=== PATIENT | male | born 1945 | race Caucasian/White ===

== ENCOUNTER 2019-09-23 20:27 | Observation (INO) | payer MEDICARE, OTHER ==
--- NOTE | 2019-09-23 21:58 | ED Physician Documentation ---
History of Present Illness - Stated complaint Stated Complaint: R EYE LAC - Chief complaint Chief Complaint: Laceration - History obtained from History obtained from: Patient, Family - Additonal information Additional information: This is a 74-year-old man who presents with complaints that he tripped on his own feet sometime between 430 and 5:00 tonight [address] on the driveway and fell breaking his glasses and cutting his right cheek. He says he did not pass out and is not feeling dizzy. He has not had any vomiting and he denies any other injury in the fall. He denies numbness or tingling into the arms or legs and no neck pain. His brought him in tonight because she found him at home when she got home around 7 PM sitting in the chair with blood all over the side of his face and he told her that he could not remember what it happened. The spent the night at their daughter's house last night because she [place] the [place]. He came out to help her bring his luggage and he was very unsteady on his feet and kind of staggering. Patient says he drink 2 glasses of wine tonight with dinner. He is uncertain when his last tetanus vaccine was. Review of Systems Eyes: reports: Other (No double vision). denies: Loss of vision, Decreased vision GI: denies: Vomiting Musculoskeletal: denies: Neck pain, Back pain Neurologic: reports: Confused, Head injury. denies: Generalized weakness, Focal weakness, Numbness, Difficulty speaking, Near syncope, Syncope, Altered mental status, Headache, LOC PD PAST MEDICAL HISTORY - Allergies Allergies/Adverse Reactions: Allergies Allergy/AdvReac Type Severity Reaction Status Date / Time No Known Drug Allergies Allergy Verified 09/23/19 20:34 PD ED PE NORMAL - Vitals Vital signs reviewed: Yes - General General: Alert and oriented X 3, No acute distress, Well developed/nourished, Other (Patient smells strongly of alcohol.) - HEENT HEENT: PERRL, EOMI, Moist mucous membranes, Other (There is bruising and swelling to the right cheek and approximately 0.75 cm laceration lateral and to the lateral canthus. It is gaping open and still has a small active bleeding present.) - Neck Neck: No bony TTP - Respiratory Respiratory: No respiratory distress - Derm Derm: Normal color, Other (Bruising as noted above) - Extremities Extremities: No deformity, No tenderness to palpate - Neuro Neuro: Alert and oriented X 3, coiled coil inspector 2-12 intact, No motor deficit, No sensory deficit, Normal speech, Other (Patient did ambulate to the bathroom.) - Psych Psych: Normal mood, Normal affect Results - Vitals Vitals: Vital Signs - 24 hr 09/23/19 09/24/19 20:34 00:13 Temperature 36.7 C Heart Rate 78 71 Respiratory 16 16 Rate Blood Pressure 123/65 118/61 O2 Saturation 94 96 Oxygen O2 Source Room air - Labs Labs: Laboratory Tests 09/23/19 09/23/19 09/23/19 23:50 23:50 23:50 WBC 9.4 RBC 4.28 L Hgb 14.6 Hct 41.2 L MCV 96.3 H MCH 34.1 H MCHC 35.4 RDW 12.8 Plt Count 187 MPV 8.9 Neut # (Auto) 5.8 Lymph # (Auto) 2.6 Dent # (Auto) 0.7 Eos # (Auto) 0.2 Baso # (Auto) 0.1 Absolute Nucleated RBC 0.00 Nucleated RBC % 0.0 PT 11.2 INR 1.0 Sodium 133 L Potassium 3.6 Chloride 89 L Carbon Dioxide 28 Anion Gap 16.0 H BUN 14 Creatinine 0.7 Estimated GFR (MDRD) 111 Glucose 99 Calcium 9.0 Total Bilirubin 0.9 AST 86 H ALT 81 H Alkaline Phosphatase 51 Total Protein 7.5 Albumin 4.4 Globulin 3.1 Albumin/Globulin Ratio 1.4 Lipase 54 H Ethyl Alcohol 185.5 - Rads (name of study) CT brain Radiology: See rad report (Patient has a 4 mm right frontoparietal subdural hematoma) PD MEDICAL DECISION MAKING - ED course Complexity details: reviewed results, re-evaluated patient, d/w patient, d/w family ED course: Laceration was repaired. Patient CT was discussed with him and his . He does have an alcohol level over 185. Liver enzymes are mildly elevated. CBC is normal. I have a call pending to the neurosurgeon at [facility] to determine whether the patient can be observed here or should be transferred. 0210: Discussed with Dr. Ahn, neurosurgery, at [facility]. He felt this subdural was probably not acute and the patient could be observed here. I did discuss again with the patient that his alcohol level is 185 and we do not want him to go into withdrawal so he needs to let us know if he is having any signs or symptoms of feeling anxious. He states understanding. The hospitalist did accept the patient for observation. Departure - Departure Disposition: ED Place in Observation Clinical Impression: Laceration, Subdural hematoma Condition: Good
[2019-09-23] MEDS ORDERED: TETANUS/DIPHTHERIA/PERTUSSIS 0.5 ML SYRINGE IM ONE (22:19)
[2019-09-23] MEDS ORDERED: LIDOCAINE 2%-EPI 1:100000 20 ML MDV SUBQ STA (22:19)
--- NOTE | 2019-09-23 23:12 | CT Report ---
Reason: head injury with memory loss Procedure Date: 09/23/2019 Accession Number: [id number] / [id number] Procedure: CT - HEAD WO CPT Code: Final Report FULL RESULT: EXAM: CT HEAD EXAM DATE: 09/23/2019 10:35 PM. CLINICAL HISTORY: Head injury with memory loss. COMPARISON: None. TECHNIQUE: Multiaxial CT images were obtained from the foramen magnum to the vertex. Reformats: Sagittal and coronal. IV contrast: None. In accordance with CT protocol optimization, one or more of the following dose reduction techniques were utilized for this exam: automated exposure control, adjustment of mA and/or KV based on patient size, or use of iterative reconstructive technique. FINDINGS: Parenchyma: No intraparenchymal hemorrhage. No evidence of mass, midline shift, or CT findings of infarction. Silva-white differentiation is distinct. An 8 mm calcification in the right cerebellum appears benign. There is no surrounding mass-effect. Extraaxial Spaces: There is a small right frontoparietal convexity subdural hemorrhage which measures 4 mm in thickness. A few hyperdense foci are seen within the subdural collection suggesting acute hemorrhage. The rest of the subdural hematoma appears isodense to the brain parenchyma. There is a small hyperdense bridging vein extending to the level of the subdural collection, which may be thrombosed. No subdural or epidural collections identified. Ventricles: Normal in size and position. Sinuses and Orbits: Imaged paranasal sinuses, orbits, and mastoids show no significant abnormality. Bones: No evidence of fracture or calvarial defect. Other: None. IMPRESSION: 1. Small right frontoparietal subdural hemorrhage with hyperdense bridging vein extending towards the subdural collection suggesting a thrombosed vein, which may represent the source of the patient's bleed. 2. No intraparenchymal hemorrhage or midline shift. 3. 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 RADIA The call report notification system was initiated by Dr. Vida Moreira at 11:04 PM on 09/23/2019. The above call report findings were discussed with Agueda Celaya by Dr. Vida Moreira at 11:10 PM on 09/23/2019.
[2019-09-24 00:02] LABS: BASOPHILS # (AUTO) 0.1 10^3/uL (0.0-0.1); BASOPHILS % (AUTO) 0.7 %; EOSINOPHILS # (AUTO) 0.2 10^3/uL (0.0-0.7); EOSINOPHILS % (AUTO) 2.3 %; HGB - HEMOGLOBIN 14.6 g/dL (14.0-18.0); LYMPHOCYTES # (AUTO) 2.6 10^3/uL (1.5-3.5); LYMPHOCYTES % (AUTO) 27.5 %; MEAN CORPUSCULAR HEMOGLOBIN 34.1 pg (27.0-31.0); MEAN CORPUSCULAR HGB CONC 35.4 g/dL (32.0-36.0); MEAN CORPUSCULAR VOLUME 96.3 fL (80.0-94.0); MEAN PLATELET VOLUME 8.9 fL (7.4-11.4); MONOCYTES # (AUTO) 0.7 10^3/uL (0.0-1.0); MONOCYTES % (AUTO) 7.8 %; NEUTROPHILS # (AUTO) 5.8 10^3/uL (1.5-6.6); NEUTROPHILS % (AUTO) 61.3 %; PLT - PLATELET COUNT 187 10^3/uL (130-450); RED BLOOD COUNT 4.28 10^6/uL (4.70-6.10); RED CELL DISTRIBUTION WIDTH 12.8 % (12.0-15.0); WHITE BLOOD COUNT 9.4 x10^3/uL (4.8-10.8)
[2019-09-24 00:10] LABS: PT - PROTHROMBIN TIME 11.2 secs (9.9-12.6)
[2019-09-24 00:14] LABS: ALBUMIN 4.4 g/dL (3.2-5.5); ALBUMIN/GLOBULIN RATIO 1.4 (1.0-2.2); BILIRUBIN,TOTAL 0.9 mg/dL (0.2-1.0); CREATININE 0.7 mg/dL (0.6-1.2); TOTAL PROTEIN 7.5 g/dL (6.7-8.2)
[2019-09-24] MEDS ORDERED: BACITRACIN ZINC OINT 14 GM TOP STA (00:50)
[2019-09-24] MEDS ORDERED: BACITRACIN ZINC OINT 1 PACKET TOP ONE ×2 (01:06→01:14)
[2019-09-24] MEDS ORDERED: ACETAMINOPHEN 325 MG TABLET PO PRN (02:13)
[2019-09-24] MEDS ORDERED: ONDANSETRON 4 MG/2 ML VIAL IVP PRN (02:13)
[2019-09-24] MEDS ORDERED: SODIUM CHLORIDE FLUSH 0.9% 10 ML SYRINGE IVP PRN (02:13)
--- NOTE | 2019-09-24 02:38 | HISTORY & PHYSICAL EXAMINATION ---
Chief Complaint - Chief Complaint Chief Complaint: Fall History of Present Illness - Admitted From Admitted From:: Home - History Obtained From Records Reviewed: Yes History obtained from: Patient, Spouse, ER Physician - History of Present Illness HPI Comment/Other: This is a 74-year-old male with a past medical history significant for hypertension and alcohol use who presented to emergency department yesterday evening after having a fall at approximately 4 PM. He reports he was working in the garage when he thinks he tripped over his feet and fell. He hit his right cheek on the driveway. He denies syncope, loss of consciousness, chest pain, palpitations prior to the event. He states he does not fall frequently. His came home today and noticed that he was bleeding and brought him to the hospital. He reportedly told his that he cannot recall what had happened to his face. He reports no numbness, headache, blurry vision, weakness. He is currently tremulous and his reports that this is his baseline. He does take a baby aspirin every day along with three antihypertensives. He also smokes a cigar every few days. He does drink a few glasses of wine each night. He has been drinking for nearly 30 to 40 years. He denies ever going through withdrawal in the past. In the emergency department, he is found to be hemodynamically stable. His right cheek laceration was repaired by the ER physician. He underwent a CT of the head which showed a 4 mm right frontoparietal subdural hematoma. This finding was discussed with neurosurgery at [facility] who felt that it was likely chronic in nature and the patient could be observed here. Medicine was then consulted for admission. I did discuss with the patient regarding goals of care. He would like to be a full code at this time. History - Past Medical History Cardiovascular: reports: Hypertension Respiratory: reports: None Neuro: reports: None - Family & Social History Family History Comment/Other: Reports no medical history in the family except for one aunt who had breast cancer. Living arrangement: At home Living Situation: With spouse/s.o. Social History Notes: He has lived on [facility] since 2004. He has been retired for 5 years now. 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 He smokes a cigar every few days and has been smoking for 30 to 40 years. He also drinks a few glasses of wine each night and has also been drinking for 30 to 40 years. Denies ever going through withdrawal. - Substance History Use: Uses substance without health or social issues: Tobacco, Alcohol Meds/Allgy - Home Medications Home Medications: Ambulatory Orders Medication Instructions Recorded Confirmed Aspirin [Aspirin EC] 81 mg PO 09/24/19 Atenolol [Tenormin] 100 mg PO DAILY 09/24/19 09/24/19 Telmisartan/Hydrochlorothiazid 1 each PO DAILY 09/24/19 09/24/19 [Telmisartan-Hctz 80-25 mg Tab] amLODIPine [Norvasc] 10 mg PO DAILY 09/24/19 09/24/19 - Allergies Allergies/Adverse Reactions: Allergies Allergy/AdvReac Type Severity Reaction Status Date / Time No Known Drug Allergies Allergy Verified 09/23/19 20:34 Review of Systems - Constitutional Constitutional: denies: Fatigue, Fever, Chills, Weakness - Eyes Eyes: denies: Vision loss, Dipolpia - Cardiovascular Cariovascular: denies: Palpitations, Chest pain, Syncope, Exertional dyspnea, Decr. exercise tolerance - Respiratory Respiratory: denies: Cough, SOB at rest, SOB with exertion - Gastrointestinal Gastrointestinal: denies: Abdominal pain, Nausea, Vomiting - Genitourinary Genitourinary: denies: Dysuria, Frequency, Urgency - Musculoskeletal Musculoskeletal: denies: Muscle pain, Limited range of motion, Muscle weakness - Integumentary Integumentary: denies: Rash - Neurological Neurological: denies: General weakness, Focal weakness, Headache, Dizziness, Numbness - All Other Systems All Other Systems: reports: Reviewed and negative Prior Level of Functionality: He is independent with ADLs. Exam - Vital Signs Reviewed Vital Signs: Yes Vital Signs: Vital Signs x48h Temp Pulse Resp BP Pulse Ox 09/24/19 00:13 71 16 118/61 96 09/23/19 20:34 36.7 C 78 16 123/65 94 - Physical Exam General Appearance: positive: No acute distress, Alert Eyes Bilateral: positive: Normal inspection ENT: positive: ENT inspection nml Neck: positive: Nml inspection Respiratory: positive: No respiratory distress. negative: Wheezes, Rales, Rhonchi Cardiovascular: positive: Regular rate & rhythm, No murmur. negative: Tachycardia, Bradycardia, Systolic murmur, Diastolic murmur Abdomen: positive: No distention. negative: Non-tender, Tenderness, Guarding, Rebound Skin: positive: No rash, Warm, Dry, Laceration (cm) (There is a repair to 1 cm laceration over the right cheek. There is an area of ecchymosis inferior to the right eye.) Extremities: positive: No pedal edema Neurologic/Psychiatric: positive: Oriented x3, Motor nml, Sensation nml, Other (He is tremulous at rest and with activity.). negative: Disoriented to person, Disoriented to place, Disoriented to time, Weakness, Facial droop, Slurred/abnml speech Conclusion/Plan - Problem List (1) Subdural hematoma Conclusion/Plan: CT of the head revealed a 4 mm right frontoparietal subdural hematoma. This was discussed with neurosurgery by the ER physician and they felt that it was likely not an acute injury. They recommended observation. We will observe the patient overnight and repeat a CT of the head in the morning. Neurochecks every 4 hours. (2) Alcohol use disorder Conclusion/Plan: He does have significant alcohol history and given he is tremulous at this time, will monitor him closely for alcohol withdrawal. His alcohol level is elevated at 185. Will use CIWA protocol if his tremors become more severe or if he shows signs of withdrawal. (3) Transaminitis Conclusion/Plan: Both his AST and ALT are elevated with his AST being slightly higher. This is l ikely secondary to his alcohol use. Will recheck in the morning. Can consider an outpatient ultrasound of the abdomen. (4) Hypertension Conclusion/Plan: His blood pressure is currently well controlled. Will resume his home antihypertensives. (5) Hyponatremia Conclusion/Plan: His sodium is mildly decreased at 133. He appears relatively euvolemic at this time. Will recheck in the morning. (6) Laceration of right cheek Conclusion/Plan: This was repaired by the ER physician and he was given a tetanus shot. Qualifiers: Encounter type: initial encounter Qualified Code(s): S01.411A - Laceration without foreign body of right cheek and temporomandibular area, initial encounter (7) Fall Conclusion/Plan: From history, this appears to be a mechanical fall but given the fact that he told his he wasn't sure what exactly happened, will obtain an EKG and check orthostatics. Qualifiers: Encounter type: initial encounter Qualified Code(s): W19.XXXA - Unspecified fall, initial encounter - Lab Results Lab results reviewed: Yes Fish Bones: 09/24/19 05:25 09/24/19 05:25 - Diagnostic Imaging Results Diagnostic Imaging Results: positive: Final report reviewed Core Measures - Anticipated LOS I expect patient to be DC'd or transferred within 96 hours.: Yes - Issues Hospital Issues and Management Plan: Subdural hematoma that will require observation and repeat imaging. - DVT/VTE - Prophylaxis VTE/DVT Device ordered at admit?: Yes VTE/DVT Prophylaxis med ordered at admit?: No Not Ordered - Medical Reason: Contraindicated
[2019-09-24 05:39] LABS: BASOPHILS # (AUTO) 0.1 10^3/uL (0.0-0.1); BASOPHILS % (AUTO) 0.7 %; EOSINOPHILS % (AUTO) 0.1 %; HGB - HEMOGLOBIN 13.5 g/dL (14.0-18.0); LYMPHOCYTES # (AUTO) 1.7 10^3/uL (1.5-3.5); LYMPHOCYTES % (AUTO) 18.9 %; MEAN CORPUSCULAR HEMOGLOBIN 35.2 pg (27.0-31.0); MEAN CORPUSCULAR VOLUME 97.7 fL (80.0-94.0); MONOCYTES % (AUTO) 11.3 %; NEUTROPHILS # (AUTO) 6.3 10^3/uL (1.5-6.6); NEUTROPHILS % (AUTO) 68.6 %; PLT - PLATELET COUNT 177 10^3/uL (130-450); RED BLOOD COUNT 3.84 10^6/uL (4.70-6.10); RED CELL DISTRIBUTION WIDTH 12.6 % (12.0-15.0); WHITE BLOOD COUNT 9.2 x10^3/uL (4.8-10.8)
[2019-09-24 05:55] LABS: ALBUMIN 3.9 g/dL (3.2-5.5); BILIRUBIN,DIRECT 0.2 mg/dL (0.1-0.5); BILIRUBIN,TOTAL 0.8 mg/dL (0.2-1.0); CALCIUM 8.8 mg/dL (8.5-10.3); CREATININE 0.6 mg/dL (0.6-1.2); TOTAL PROTEIN 6.8 g/dL (6.7-8.2)
[2019-09-24] MEDS ORDERED: SODIUM CHLORIDE 0.9% 1,000 ML IV SCH (07:00)
[2019-09-24] MEDS ORDERED: SODIUM CHLORIDE FLUSH 0.9% 10 ML SYRINGE ONE (07:07)
[2019-09-24] MEDS ORDERED: SODIUM CHLORIDE FLUSH 0.9% 10 ML SYRINGE IVP SCH (09:00)
[2019-09-24] MEDS ORDERED: NICOTINE 14 MG PATCH TOP SCH (09:27)
[2019-09-24 09:59] VITALS: BP 113/60
--- NOTE | 2019-09-24 10:33 | CT Report ---
Reason: Subdural hematoma eval. Procedure Date: 09/24/2019 Accession Number: [id number] / [id number] Procedure: CT - HEAD WO CPT Code: Final Report FULL RESULT: EXAM: CT HEAD EXAM DATE: 09/24/2019 07:54 AM. CLINICAL HISTORY: Subdural hematoma evaluation. COMPARISON: HEAD W/O 09/23/2019 10:30 PM. TECHNIQUE: Multiaxial CT images were obtained from the foramen magnum to the vertex. Reformats: Sagittal and coronal. IV contrast: None. In accordance with CT protocol optimization, one or more of the following dose reduction techniques were utilized for this exam: automated exposure control, adjustment of mA and/or KV based on patient size, or use of iterative reconstructive technique. FINDINGS: Parenchyma: No intraparenchymal hemorrhage. Dystrophic calcification in the right cerebellar hemisphere with nearby prominent CSF space is unchanged in configuration. No evidence of new mass, midline shift. Silva-white differentiation is distinct. Extraaxial Spaces: Normal for age. The previously seen right frontal subdural hygroma remains essentially unchanged in configuration and extends to the parietal convexity with a maximal thickness of 0.9 cm as observed coronally. No hyperdense extra-axial collection and no new extra-axial collection are seen. Ventricles: Stable size and configuration. Sinuses and Orbits: Imaged paranasal sinuses, orbits, and mastoids show no significant abnormality. Bones: No evidence of fracture or calvarial defect. Other: None. IMPRESSION: Stable, chronic right frontoparietal subdural collection. RADIA
--- NOTE | 2019-09-24 11:10 | Discharge Plan ---
Discharge Plan Problem Reviewed?: Yes Disposition: Home, Self Care Condition: Stable Diet: Regular Activity Restrictions: Activity as Tolerated Shower Restrictions: No (fall precaution) Instruction Topics: Falls Risks Prevent Health Concerns: small subdural hemorrhage Plan of Treatment: The new CT of your brain reveals stable chronic right frontoparietal subdural collection. you have no focal neurological deficits. advise you hold your aspirin now until you see your PCP or neurologist to evaluate you. Care Goals: stabilization and improvement of your medical condition Assessment: discussed with image studies with you, and you agree the care plan Additional Instructions or Follow Up instructions: you may followup your PCP in one week, followup neurologist as out-pt. should your symptoms return or worsen, you may present ER or call 911 for help. No Smoking: If you smoke, Please STOP! Call for help.
--- NOTE | 2019-09-24 11:20 | DISCHARGE SUMMARY ---
Discharge Summary Admit Date: 09/24/19 Discharge Date: 09/24/19 Discharging Provider: MENDOZA Condition at Discharge: Stable Discharge Disposition: 01 Home, Self Care Discharge Facility Name: home - DIAGNOSES Admission Diagnoses: (1) Subdural hematoma (2) Alcohol use disorder (3) Transaminitis (4) Hypertension (5) Hyponatremia (6) Laceration of right cheek (7) Fall Discharge Diagnoses with Status of Each Condition: 1) Subdural hematoma stable. new CT of head reveals stable, chronic right frontoparietal subdural collection. pt has no focal neurological deficits. advise pt hold his aspirin until he is evaluated by his PCP or neurologist (2) Alcohol use disorder stable (3) Transaminitis improved. slight elevated liver enzyme. pt ate his breakfast well. it is likely from pt's alcohol usage (4) Hypertension stable (5) Hyponatremia stable. Na 132. (6) Laceration of right cheek stable, pt denies any pain or infection. (7) Fall stable. advise pt for fall prevention, reduce his alcohol usage. - HPI History of Present Illness: refer from Dr. Simpson's HPI on 09/24/19 This is a 74-year-old male with a past medical history significant for hypertension and alcohol use who presented to emergency department yesterday evening after having a fall at approximately 4 PM. He reports he was working in the garage when he thinks he tripped over his feet and fell. He hit his right cheek on the driveway. He denies syncope, loss of consciousness, chest pain, palpitations prior to the event. He states he does not fall frequently. His came home today and noticed that he was bleeding and brought him to the hospital. He reportedly told his that he cannot recall what had happened to his face. He reports no numbness, headache, blurry vision, weakness. He is currently tremulous and his reports that this is his baseline. He does take a baby aspirin every day along with three antihypertensives. He also smokes a cigar every few days. He does drink a few glasses of wine each night. He has been drinking for nearly 30 to 40 years. He denies ever going through withdrawal in the past. In the emergency department, he is found to be hemodynamically stable. His right cheek laceration was repaired by the ER physician. He underwent a CT of the head which showed a 4 mm right frontoparietal subdural hematoma. This finding was discussed with neurosurgery at [facility] who felt that it was likely chronic in nature and the patient could be observed here. Medicine was then consulted for admission. I did discuss with the patient regarding goals of care. He would like to be a full code at this time. - HOSPITAL COURSE Hospital Course: pt was admitted for observation of his small subdural hemorrhage from his fall. pt was found to have 4 mm subdural hemorrhage. Pt denies any focal neurological deficit. New CT of head reveals stable, chronic right frontoparietal subdural collection. pt continue no focal neurological deficits. pt is alert and oriented. advise pt hold his aspirin until he is evaluated by his PCP or neurologist. the detail hospital course is as the below 1) Subdural hematoma stable. new CT of head reveals stable, chronic right frontoparietal subdural collection. pt has no focal neurological deficits. advise pt hold his aspirin until he is evaluated by his PCP or neurologist (2) Alcohol use disorder stable (3) Transaminitis improved. slight elevated liver enzyme. pt ate his breakfast well. it is likely from pt's alcohol usage (4) Hypertension stable (5) Hyponatremia stable. Na 132. (6) Laceration of right cheek stable, pt denies any pain or infection. (7) Fall stable. advise pt for fall prevention, reduce his alcohol usage. - ALLERGIES Allergies/Adverse Reactions: Allergies Allergy/AdvReac Type Severity Reaction Status Date / Time No Known Drug Allergies Allergy Verified 09/23/19 20:34 - MEDICATIONS Home Medications: Ambulatory Orders Medication Instructions Recorded Confirmed Atenolol [Tenormin] 100 mg PO DAILY 09/24/19 09/24/19 Telmisartan/Hydrochlorothiazid 1 each PO DAILY 09/24/19 09/24/19 [Telmisartan-Hctz 80-25 mg Tab] amLODIPine [Norvasc] 10 mg PO DAILY 09/24/19 09/24/19 - PHYSICAL EXAM AT DISCHARGE General Appearance: positive: No acute distress, Alert. negative: Lethargic Eyes Bilateral: positive: Normal inspection, PERRL, No lid inflammation, Conjunctivae nml ENT: positive: ENT inspection nml, Pharynx nml, No signs of dehydration. negative: Purulent nasal drainage Neck: positive: Nml inspection, Thyroid nml, No JVD, Trachea midline. negative: Thyromegaly, Lymphadenopathy (R), Lymphadenopathy (L), Stiff neck, Tracheal deviation Respiratory: positive: Chest non-tender, No respiratory distress, Breath sounds nml. negative: Wheezes, Rales, Rhonchi Cardiovascular: positive: Regular rate & rhythm, No murmur, No gallop. negative: Irregularly irregular, Extrasystoles, Tachycardia, Bradycardia, JVD present, Systolic murmur, Diastolic murmur Peripheral Pulses: positive: 2+ Abdomen: positive: Non-tender, No organomegaly, Nml bowel sounds, No distention. negative: Tenderness, Guarding, Rebound Back: positive: Nml inspection. negative: CVA tenderness (R), CVA tenderness (L) Skin: positive: No rash, Warm, Dry, Laceration (cm). negative: Cyanosis, Diaphoresis, Pallor Extremities: positive: Non-tender, Full ROM, Nml appearance. negative: Calf tenderness, Abhishek's sign/cords Neurologic/Psychiatric: positive: Oriented x3, Motor nml, Sensation nml, Mood/affect nml. negative: Weakness, Sensory loss, Facial droop, Slurred/abnml speech, Depressed mood/affect - LABS Result Diagrams: 09/24/19 05:25 09/24/19 05:25 - FOLLOW UP Follow Up: The new CT of your brain reveals stable chronic right frontoparietal subdural collection. you have no focal neurological deficits. advise you hold your aspirin now until you see your PCP or neurologist to evaluate you. you may followup your PCP in one week, followup neurologist as out-pt. should your symptoms return or worsen, you may present ER or call 911 for help. - TIME SPENT Time Spent in Discharge (Minutes): 45
== END 2019-09-24 12:13 | disposition home or self-care (01) ==
LOC: ED 20:27 → MS3 09-24 02:13
PROVIDERS: ADMIT Internal Medicine; ATTEND Nurse Practitioner Gerontology
DX: S06.5X0A Traumatic subdural hemorrhage without loss of consciousness, initial encounter (principal); S01.411A Laceration without foreign body of right cheek and temporomandibular area, initial encounter; W01.0XXA Fall on same level from slipping, tripping and stumbling without subsequent striking against object, initial encounter; Y92.008 Other place in unspecified non-institutional (private) residence as the place of occurrence of the external cause; F10.20 Alcohol dependence, uncomplicated; Y90.7 Blood alcohol level of 200-239 mg/100 ml; R74.0 Nonspecific elevation of levels of transaminase and lactic acid dehydrogenase [LDH]; I10 Essential (primary) hypertension; E87.1 Hypo-osmolality and hyponatremia; F17.290 Nicotine dependence, other tobacco product, uncomplicated; Z91.81 History of falling
CPT/HCPCS: 12011; 36415; 70450; 80048; 80053; 80076; 83690; 85025; 85610; 90471; 90715; 93005; 99284; 99285; 99406; A9270; G0378; 80320